=== PATIENT | female | born 2005 | race Two or more races ===

== ENCOUNTER → 2025-02-09 | Outpatient (CLI) | payer MEDICAID, SELFPAY ==
--- NOTE | 2025-02-09 09:10 | XR_ITS ---
Examination: Knee, right , 3 views Technique: Knee AP, lateral, oblique 3 views Date and time of exam: 10/12/2024 0917 hours INDICATIONS: Injury to the knee 2 weeks ago with knee pain. FINDINGS: No fracture or dislocation. Adequate bone density Minute opacity 1 mm in the soft tissue prepatellar, clinical correlation advised IMPRESSION: No fracture Minute opacity in the soft tissue prepatellar, clinical correlation advised
== END | disposition home or self-care (01) ==
PROVIDERS: PCP Physician Assistant; Referring Provider Physician Assistant; Visit Provider Physician Assistant
DX: M25.561 Pain in right knee (principal)
CPT/HCPCS: 73562

== ENCOUNTER → 2025-05-31 | Outpatient (CLI) | payer MEDICAID, SELFPAY ==
--- NOTE | 2025-05-31 11:23 | XR_ITS ---
Examination: Right knee 4 views TECHNIQUE: AP oblique lateral axial right knee 4 views Date and time: May 31, 2025 1125 hours INDICATIONS: Knee injury several months ago FINDINGS: No fracture or dislocation. Mild narrowing medial joint space Small knee effusion Mild subluxation of the patella laterally 6 mm IMPRESSION: No fracture Mild subluxation patella laterally
== END | disposition home or self-care (01) ==
LOC: SDIM 11:17
PROVIDERS: PCP Physician Assistant; Referring Provider Physician Assistant; Visit Provider Physician Assistant
DX: S83.011A Lateral subluxation of right patella, initial encounter (principal); X58.XXXA Exposure to other specified factors, initial encounter
CPT/HCPCS: 73564